=== PATIENT | female | born 1995 | race Caucasian/White ===

== ENCOUNTER 2016-12-20 08:06 | Inpatient (IN) | payer MEDICAID ==
[2016-12-20 08:22] VITALS: BMI 23.0
[2016-12-20] MEDS ORDERED: Lactated Ringer's 1,000 ML IV SCH ×2 (08:30→09:30)
--- NOTE | 2016-12-20 08:37 | OBADHP ---
Datetime: 12/20/2016 08:19 Admit Comment, IP Provider: chief complaint-contractions HPI 21 y/o at 38.3 wga with c/o contractions.Patient denies nausea, vomiting, headache, chest pain, shortness of breath, numbness or tingling in hands and feet course complicated by gestataional diabetes.patient not compliant with checking sugars.no recent ultrasound available.patient was made appt for diabetic teaching but did not follow through f or it.Patient transferred care from [facility] at 28 weeks.no records avaialble from [place] PMH denies PSH kidney stone at age 3 obgyn hx Social hx denies tobacco,alcohol or illicit drug use Exam see exam section A/P 21 y/o at 38.3 wga in labor.GBS negative.GDM.Not on meds but noncompliant with fingert st icks.No blood sugar log available for review.no recnt ultrasound available.EFW by sincere 3000 grams .adequate pelvis -admit -see orders Pelvic Type - PN: Adequate Extremities - PN: Normal Abdomen - PN: Normal Back - PN: Normal Lungs - PN: Normal Heart - PN: Normal Neurologic - PN: Normal General - PN: Normal Weight - Estimated: 3000 Presentation-Admit: Vertex Contraction Comments Provider: irregular IP Hx Assessment: The History has been Reviewed and is Current Vital Signs Provider: Reviewed; Within Normal Limits IP Chief Complaint: Uterine contractions FHR Category Provider Fetus A: Category I Dilatation, Provider: 3 Effacement, Provider: 90 Station, Provider: -1 Genitourinary Exam: Normal DTRs - PN: Normal EGA AdmitDate IP: 38.3 IP Adm Impression: Term, intrauterine ; Active labor IP Admit Plan: Admit to unit; Initiate labor protocol
[2016-12-20 09:02] LABS: BASO % 0.4 % (0.0-2.0); EOS % 0.4 % (0.0-4.0); HEMATOCRIT 33.4 % (34.0-47.0); LYMPH # 2.1 K/uL (1.0-4.3); LYMPH % 31.9 % (20.0-40.0); MEAN CELL VOLUME 64.3 fL (81.0-99.0); MEAN CORPUSCULAR HEMOGLOBIN 20.3 pg (27.0-31.0); MEAN CORPUSCULAR HGB CONC 31.6 g/dL (33.0-37.0); MEAN PLATELET VOLUME 12.1 fL (7.2-11.7); MONO # 0.5 K/uL (0.0-0.8); MONO % 7.3 % (0.0-10.0); NRBC % 0.1 % (0.0-2.0); WHITE BLOOD COUNT 6.7 K/uL (4.8-10.8)
[2016-12-20 09:13] LABS: CHLORIDE 106 mmol/L (98-107); SODIUM 137 mmol/L (132-148)
[2016-12-20 09:15] LABS: GFR AFRICAN-AMERICAN > 60
[2016-12-20 09:16] LABS: ALKALINE PHOSPHATASE 227 U/L (38-126); ALT/SGPT 254 U/L (9-52); AST/SGOT 225 U/L (14-36); BILIRUBIN,TOTAL 0.7 mg/dL (0.2-1.3); BLOOD UREA NITROGEN 15 mg/dL (7-17); CARBON DIOXIDE 17 mmol/L (22-30); GLUCOSE,RANDOM 70 mg/dL (65-105); TOTAL PROTEIN 7.5 g/dL (6.3-8.3)
[2016-12-20 09:17] LABS: CALCIUM 8.9 mg/dl (8.6-10.4)
[2016-12-20] MEDS ORDERED: Bupivacaine 0.125%/FentaNYL 200 ML EPI ONE (09:18)
[2016-12-20 09:23] LABS: RBC URINE 1 /hpf (0-3); URINE BILIRUBIN NEGATIVE (NEGATIVE); URINE BLOOD NEGATIVE (NEGATIVE); URINE COLOR Yellow (YELLOW); URINE GLUCOSE (UA) NORMAL (Normal); URINE KETONE NEGATIVE (NEGATIVE); URINE LEUKOCYTE ESTERASE NEG Leu/uL (Negative); URINE PROTEIN NEGATIVE (NEGATIVE); URINE UROBILINOGEN NORMAL mg/dL (0.2-1.0); WBC URINE 3 /hpf (0-5)
[2016-12-20] MEDS ORDERED: Oxytocin 30 UNIT 30 UNITS/500 ML BAG IV ONE (11:13)
[2016-12-20] MEDS ORDERED: Oxytocin 30 UNIT 30 UNITS/500 ML BAG IV PRN (11:13)
--- NOTE | 2016-12-20 11:22 | OBPN ---
Datetime: 12/20/2016 11:17 IP Progress Impression: Reassuring heart rate IP Procedures: Artificial ROM; Sterile Vag Exam IP Progress Plan: Continue present management Contraction Comments Provider: irregular IP Progress Note Comment: S-patient comfortabelw th epidural FHT cat1 [place] irregular ctx sve /-1 A/P Patient in labor at 38.3 wga .Hx of gdm.non compliant.labs drawn on admission show elevated as t and alt -arom done.clear fuid -ctx spaced out after epidural.start pitocin for augmentation -repeat lfts in am again Vital Signs Provider: Reviewed FHR Category Provider Fetus A: Category I Dilatation, Provider: 4 Effacement, Provider: 90 Station, Provider: -1 Datetime: 12/20/2016 08:19 Weight - Estimated: 3000 Presentation-Admit: Vertex
[2016-12-20] MEDS ORDERED: Lidocaine 2% Inj (20ml) ONE (14:14)
[2016-12-20] MEDS ORDERED: Benzocaine/Menthol 20%-0.5% Topical Spray (60 ml) TOP PRN (14:35)
[2016-12-20] MEDS: Oxycodone/Acetaminophen 5/325 mg Tab PO PRN (20:53)
[2016-12-21] MEDS: Oxycodone/Acetaminophen 5/325 mg Tab PO PRN (02:07)
[2016-12-21 07:27] LABS: BASO % 0.2 % (0.0-2.0); EOS % 0.4 % (0.0-4.0); LYMPH # 2.1 K/uL (1.0-4.3); MEAN CELL VOLUME 64.6 fL (81.0-99.0); MEAN CORPUSCULAR HEMOGLOBIN 20.4 pg (27.0-31.0); MEAN CORPUSCULAR HGB CONC 31.7 g/dL (33.0-37.0); MEAN PLATELET VOLUME 10.8 fL (7.2-11.7); MONO # 0.7 K/uL (0.0-0.8); RED CELL DISTRIBUTION WIDTH 14.9 % (11.5-14.5); WHITE BLOOD COUNT 9.5 K/uL (4.8-10.8)
--- NOTE | 2016-12-21 08:19 | OBPPN ---
Datetime: 12/21/2016 08:16 PP Pain Prov: Within normal limits PP Nausea Prov: Denies PP Flatus Prov: Yes PP Abdomen/Uterus Prov: Normal PP Lochia Prov: Normal PP Extremities Prov: Normal PP Comments Phys Exam Prov: fudus below um ext no edema,no calf ten PP Impression Prov: Normal progression PP Plan Prov: Continue present management PP Progress Note Prov: pt was seen at bedc side, pain under control,no n/v, tolerating deit,voiding, min lochia, flartus- ppd#1 s/p cont pain mathew cont post pp care envourage ambulation Vital Signs Provider PP: Reviewed; Within Normal Limits
[2016-12-21] MEDS: Multiple Vitamins Tab PO SCH (09:47)
[2016-12-22] MEDS: Oxycodone/Acetaminophen 5/325 mg Tab PO PRN ×2 (02:11→06:14)
--- NOTE | 2016-12-22 08:26 | OBPPN ---
Datetime: 12/22/2016 08:23 PP Pain Prov: Within normal limits PP Nausea Prov: Denies PP Flatus Prov: Yes PP Lochia Prov: Normal PP Vulva/Perineum Prov: Normal PP Extremities Prov: Normal PP C/S Incision Prov: Not Applicable PP Progress Prov: Normal PP Impression Prov: Normal progression PP Plan Prov: Discharge PP Progress Note Prov: S-patient reports that she has adequate pain control.tolerating diet.denies n ausea, vomiting, headace, chest pain, shortness of breath, numbness or tingling in hands and feet.den ies any difficulty ambulating or voiding.feels happy about the baby Exam Fundus firm and below umbilcius Extremities no calf tenderness A/P Patient s/p vaginal delivery PPD 2 doing well -discharge today -follow up in clinic in 6 weeks -take vitamins regualrly Vital Signs Provider PP: Reviewed
--- NOTE | 2016-12-22 08:28 | OBDCSUM ---
Datetime: 12/22/2016 08:25 Discharged to, Provider: Home Follow up at, Provider: obgyn clinic Disch Instr Diet: Regular Discharge Instructions, Provider: Routine instructions given Discharge Diagnosis, Provider: Term Delivered Discharge Time: 12/22/2016 08:25 Follow up in weeks, Provider: 6 weeks Disch Activity Restrictions: No exercising; No lifting; No driving; No sexual activity; Nothing in v agina - [place], tampons, douche Discharge Comment, Provider: go toe r if you have fever, pain, heavy bleeding or any other problems Discharge Diagnosis Prov Other: s/p vaginal delivery
[2016-12-22 08:48] VITALS: BP 103/64; PULSE 65; RESP 18; TEMP 97.4; O2SAT 99
[2016-12-22] MEDS: Multiple Vitamins Tab PO SCH (09:14)
== END 2016-12-22 12:10 | disposition home or self-care (01) | DRG 372 ==
LOC: C.EROB 08:06 → C.4D 08:22 → C.4M 16:00
PROVIDERS: ADMIT Student in an Organized Health Care Education/Training Program; ATTEND Student in an Organized Health Care Education/Training Program
PROC: 10D07Z6 Extraction of Products of Conception, Vacuum, Via Natural or Artificial Opening (ICD-10-PCS; principal; 2016-12-20)
PROC: 0W8NXZZ Division of Female Perineum, External Approach (ICD-10-PCS; 2016-12-20)
DX: O24.419 Gestational diabetes mellitus in pregnancy, unspecified control (principal); O26.893 Other specified pregnancy related conditions, third trimester; O09.33 Supervision of pregnancy with insufficient antenatal care, third trimester; Z37.0 Single live birth; Z3A.38 38 weeks gestation of pregnancy; Z91.19 Patient's noncompliance with other medical treatment and regimen

== ENCOUNTER 2017-02-03 20:48 | Emergency (ER) | payer MEDICAID ==
[2017-02-03 20:48] VITALS: BMI 23.0
--- NOTE | 2017-02-03 23:05 | C.PDOC ---
History Of Present Illness 21 year old female who is actively breast feeding presents to the Er with bilateral upper dental pain, headache, fever, bilateral breast pain, and bilateral leg pain for 1 day. Denies nausea, vomiting, abdominal pain, dysuria, or hematuria. Time Seen by Provider: 02/03/17 21:31 Chief Complaint (Nursing): Fever History Per: Patient History/Exam Limitations: no limitations Onset/Duration Of Symptoms: Days Current Symptoms Are (Timing): Still Present Location Of Pain: Headache, Other (Mouth, Breast, Legs) Associated Symptoms: Fever. denies: Nausea, Vomiting, Diarrhea Ear Symptoms: Bilateral: None Recent travel outside of the [place]: No Past Medical History Reviewed: Historical Data, Nursing Documentation, Vital Signs Vital Signs: Last Vital Signs Temp 99.4 F 02/03/17 23:41 Pulse 97 H 02/03/17 23:41 Resp 18 02/03/17 23:41 BP 94/51 L 02/03/17 23:41 Pulse Ox 99 02/03/17 23:47 - Medical History PMH: No Chronic Diseases Surgical History: No Surg Hx - [facility] Procedures DIVISION OF FEMALE PERINEUM, EXTERNAL APPROACH (12/20/16) EXTRACTION OF PRODUCTS OF CONCEPTION, VACUUM, VIA OPENING (12/20/16) Family History: States: Unknown Family Hx - Social History Hx Alcohol Use: No Hx Substance Use: No - Immunization History Hx Tetanus Toxoid Vaccination: No Hx Influenza Vaccination: No Hx Pneumococcal Vaccination: No Review Of Systems Constitutional: Positive for: Fever ENT: Positive for: Mouth Pain Gastrointestinal: Negative for: Nausea, Vomiting, Abdominal Pain Genitourinary: Negative for: Dysuria, Frequency, Incontinence, Hematuria Musculoskeletal: Positive for: Leg Pain, Other (Breast Pain) Physical Exam - Physical Exam Appears: Non-toxic, Other (Uncomfortable) Skin: Normal Color, Warm, Dry Head: Atraumatic, Normacephalic Oral Mucosa: Moist Teeth: Caries, Tender To Palpation (Bilateral upper posterior teeth) Gingiva: Normal Appearing, No Swelling Throat: Normal, No Erythema, No Exudate Neck: Normal, No Midline Cervical Tenderness, No Paracervical Tenderness, Supple Lymphatic: Normal Exam, No Adenopathy Chest: Symmetrical, Tenderness (Breast, Diffusely), No Other (Induration, Warmth , Erythema) Cardiovascular: Rhythm Regular, No Murmur Respiratory: Normal Breath Sounds, No Rales, No Rhonchi, No Wheezing Gastrointestinal/Abdominal: Soft, No Tenderness Extremity: Normal ROM (x4), Tenderness (Bilateral anterior thighs) Neurological/Psych: Oriented x3, Normal Speech, Normal Cognition ED Course And Treatment O2 Sat by Pulse Oximetry: 99 (Room air) Pulse Ox Interpretation: Normal Progress Note: Tylenol and motrin administered. On reevaluation, patient feels her pain has much improved; will discharge home. Medical Decision Making Medical Decision Making: pt feeling much better sfter tylenol sand motrin, smiling, baby. will d/c with pmd and dental follow up. Disposition Counseled Patient/Family Regarding: Diagnosis, Need For Followup - Disposition Disposition: HOME/ ROUTINE Disposition Time: 23:43 Condition: IMPROVED Additional Instructions: Take Tylenol 650 mg by mouth every 4-6 hours for pain or fever. Follow up with your doctor on Monday. Follow up with Dentist as soon as possible. Return to ER for any worsening symptoms. Prescriptions: Acetaminophen [Tylenol 325mg tab] 650 mg PO Q6 #50 tab Instructions: Viral Syndrome (ED) Forms: General Discharge Instructions - Clinical Impression Clinical Impression: Viral syndrome, Pain, dental - Scribe Statement The provider has reviewed the documentation as recorded by the Scribe William Bronson All medical record entries made by the Scribe were at my direction and personally dictated by me. I have reviewed the chart and agree that the record accurately reflects my personal performance of the history, physical exam, medical decision making, and the department course for this patient. I have also personally directed, reviewed, and agree with the discharge instructions and disposition.
[2017-02-03 23:41] VITALS: BP 94/51; PULSE 97; RESP 18; TEMP 99.4
[2017-02-03 23:46] VITALS: O2SAT 99
== END 2017-02-03 23:49 | disposition home or self-care (01) ==
LOC: C.ER 20:48
DX: K08.89 Other specified disorders of teeth and supporting structures (principal); B34.9 Viral infection, unspecified